=== PATIENT | female | born 1965 | race Caucasian/White ===

== ENCOUNTER 2019-04-06 07:49 | Outpatient (CLI) | payer MEDICAID ==
--- NOTE | 2019-04-06 09:01 | MRI ---
MRI Brain W WO Con: 04/06/2019 12:00 AM CLINICAL HISTORY: Headaches, dizziness, history of malignancy, breast cancer. COMPARISON: None. FINDINGS: Extra axial spaces: Normal in size and morphology for the patient's age. Acute infarction: None. Ventricular system: Normal in size and morphology for the patient's age. Basal cisterns: Normal. Cerebral parenchyma: Minimal chronic microvascular ischemic disease. Midline shift: None. Cerebellum: Normal. Brainstem: Normal. Paranasal sinuses:Clear Intraaxial Enhancement: None IMPRESSION:No acute intracranial abnormality.
--- NOTE | 2019-04-06 10:23 | CT ---
CT OF THE CHEST AND ABDOMEN AND PELVIS WITH IV CONTRAST: Date: 04/06/19 INDICATION: History of Stage III breast cancer, evaluate for metastatic disease. COMPARISON: None. FINDINGS: There is a heterogeneous and lobulated mass within the outer aspect of the left breast measuring 3.2 x 2.6 cm. There is an enlarged left axillary lymph node measuring 2.4 cm. There are additional enlarg ed lymph nodes seen within the superior axillary region measuring up to 1.0 cm on image 13 of series 2. Views are predominantly retropectoral. There is also a slightly prominent lymph node seen adjacent to the left subclavian vein measuring 6 mm on image 9 of series 2. No additional lymphadenopathy is evident. There is a 3 mm pulmonary nodule within the anterolateral right lower lobe on image 44 of se odin 3. No additional pulmonary nodule evident. There are areas of subsegmental volume loss within th e left lung. There is scattered centrilobular emphysema. Within the abdomen, no suspicious focal lesion is evident within the solid organs. The liver, spleen, pancreas, and adrenal glands are normal appearing. There is a 5 mm left renal cortical calcification . There are small subcentimeter cysts within both kidneys. No enlarged lymph nodes or free fluid evident. The partially opacified small and large bowel appear within normal limits. The uterus, visualized adnexa, bladder, rectum, and perirectal soft tissues are unremarkable appearin g. There are healed rib deformities laterally involving the 3rd through 5th ribs. There are also healed rib deformities involving the posterolateral 8th and 9th ribs. No suspicious osteolytic or osteoblastic lesion is identified. IMPRESSION: 1. Findings of left breast malignancy with regional lymph node spread of disease to the left axilla, left retropectoral space, and suspected within the left subclavicular region. No distant metastatic disease definitely demonstrated. There is a 3 mm pulmonary nodule within the anterolateral segment of the right lower lobe. This is not likely related to pulmonary metastatic disease; however, would rec ommend short-term follow-up in 6-8 weeks to document stability and size. PET CT would likely not be b eneficial as this is below PET resolution threshold. 2. Scattered emphysema. 3. Small, subcentimeter cyst within the right and left kidney. 4. Multiple healed right-sided rib deformities. POS: [facility]
[2019-04-06] MEDS ORDERED: Iopamidol 370 76% 100 ML VIAL ONE (13:34)
[2019-04-06] MEDS ORDERED: Gadobenate Dimeglumine 529 MG/1 ML (20ML VIAL) ONE (13:41)
--- NOTE | 2019-04-06 14:05 | NM ---
WHOLE BODY BONE SCAN: INDICATION: History of left breast malignancy. RADIOPHARMACEUTICAL: 30.1 mCi Technetium 99m sestamibi IV. COMPARISON: Prior CT of the chest, abdomen, and pelvis dated 04/06/2019. FINDINGS: There is mild degenerative change involving the shoulders, knees, ankles, and feet in a symmetric pat tern. No scintigraphic evidence of osseous metastatic disease is present. IMPRESSION: No definite scintigraphic evidence of osseous metastatic disease. POS: [facility]
== END 2019-04-06 07:50 | disposition home or self-care (01) ==
LOC: MRI 07:49
PROVIDERS: ATTEND Internal Medicine Hematology & Oncology
DX: C50.412 Malignant neoplasm of upper-outer quadrant of left female breast (principal); R51 Headache; R42 Dizziness and giddiness; J43.9 Emphysema, unspecified; R91.8 Other nonspecific abnormal finding of lung field; N28.1 Cyst of kidney, acquired; C79.9 Secondary malignant neoplasm of unspecified site
CPT/HCPCS: 70553; 71260; 74177; 78306; A9503; A9577; Q9967

== ENCOUNTER 2019-04-09 13:20 | Outpatient (CLI) | payer MEDICAID ==
[2019-04-09 16:12] LABS: #Eosinphils 0.1 thou/uL (0.0-0.7); #Lymphocytes 1.8 thou/uL (1.20-3.40); #Monocytes 0.5 thou/uL (0.11-0.59); #Neutrophils 3.7 thou/uL (1.40-6.50); %Basophils 0.5 % (0.0-1.0); %Eosinophils 1.8 % (0.0-10.0); %Lymphocytes 28.6 % (21.0-51.0); %Monocytes 8.8 % (0.0-10.0); %Neutrophils 60.3 % (42.0-75.0); Hemoglobin 14.4 g/dL (12.0-16.0); Mean Corpuscular HGB CONC 33.8 g/dL (32.0-36.0); Mean Corpuscular Hemoglobin 33.6 pg (27.0-31.0); Mean Corpuscular Volume 99.4 fL (78.0-98.0); Mean Platelet Volume 7.3 fL (7.4-10.4); Platelet Count 238 thou/uL (130-400); RBC Distribution Width 11.4 % (11.5-14.5); Red Blood Cell (RBC) Count 4.27 mill/uL (4.20-5.40); White Blood Cell (WBC) Count 6.1 thou/uL (4.8-10.8)
[2019-04-09 16:26] LABS: Anion Gap 13 mmol/L (10-20); BUN (Urea Nitrogen) 8 mg/dL (9.8-20.1); Calc. Creatinine Clearance 0 mL/min (70-130); Calcium 9.7 mg/dL (7.8-10.44); Carbon Dioxide 20 mmol/L (22-29); Chloride 107 mmol/L (98-107); Estimated GFR-MDRD 70; Glucose 86 mg/dL (70-105); Potassium 3.9 mmol/L (3.5-5.1); Sodium 136 mmol/L (136-145)
== END 2019-04-09 13:21 | disposition home or self-care (01) ==
LOC: LABBT 13:20
PROVIDERS: ATTEND Specialist
DX: Z01.818 Encounter for other preprocedural examination (principal); C50.912 Malignant neoplasm of unspecified site of left female breast
CPT/HCPCS: 80048; 85025; 93005; 93010

== ENCOUNTER 2019-04-10 13:58 | Day surgery (SDC) | payer MEDICAID ==
[2019-04-09 15:33] VITALS: BMI 29.8
[2019-04-10] MEDS ORDERED: Ketorolac Tromethamine 30 MG/ML VIAL ONE (16:12)
[2019-04-10] MEDS ORDERED: Levofloxacin 500 mg/D5W 100 ml Premix Bag ONE (17:17)
[2019-04-10] MEDS ORDERED: Bupivacaine/Epinephrine 0.25% 30 ML VIAL ONE (20:32)
[2019-04-10] MEDS ORDERED: Lidocaine 1% (PF) 30 ML VIAL ONE (20:32)
[2019-04-10] MEDS ORDERED: Fentanyl 100 MCG/2 ML VIAL ONE (20:47)
[2019-04-10] MEDS ORDERED: Propofol 500 MG/50 ML VIAL ONE (20:47)
--- NOTE | 2019-04-10 22:18 | RAD ---
Portable chest: HISTORY: Mediport placement COMPARISON: none FINDINGS:There is patchy infiltrate in the left lung base at the CP angle. Lungs otherwise appear clear. Mediport catheter appears in adequate position with tip overlying SVC. IMPRESSION:Patchy left basilar infiltrate. Mediport catheter appears in adequate position.
--- NOTE | 2019-04-11 02:09 | OP ---
DATE OF PROCEDURE: 04/10/2019 PREOPERATIVE DIAGNOSIS: Advanced stage left breast cancer. POSTOPERATIVE DIAGNOSIS: Advanced stage left breast cancer. PROCEDURE PERFORMED: Placement of right subclavian low-profile MediPort. ANESTHESIA: Total intravenous anesthesia with local using 0.25% Marcaine with epinephrine. INDICATIONS: The patient is a 53-year-old white female. She has an easily palpable lateral left breast malignancy. She also has a large easily palpable left axillary metastatic lymph node. Neoadjuvant chemotherapy has been recommended for her triple negative breast cancer. She is taken to the operating room at this time for MediPort placement. DESCRIPTION OF OPERATION: Informed consent was obtained. The patient was taken to the operating room where total intravenous anesthesia was obtained with the patient in supine position. Right periclavicular area was prepped with ChloraPrep and draped in sterile fashion. Local anesthetic was infiltrated and a large-gauge needle was passed under the clavicle in the subclavian vein. Guidewire was passed through the needle and fluoroscopically confirmed to enter the superior vena cava. Additional local anesthetic was infiltrated and transverse incision was created based on needle insertion site. A subcutaneous pocket was dissected inferiorly. Introducer dilator was passed over the guidewire under fluoroscopic guidance. The guidewire and dilator were removed, and the catheter was passed through the introducer. The tip of the catheter was positioned at the atriocaval junction and the catheter was trimmed to the appropriate length and secured to the locking hub of the MediPort. The port was then placed in the subcutaneous pocket where it was secured to the pectoral fascia with 2 interrupted sutures of 3-0 Prolene. The incision was then closed in layers with 3-0 and 4-0 Monocryl. Additional local anesthetic was infiltrated. The port was cannulated with a Stewart needle and it aspirated blood freely and was flushed with heparinized saline. Dermabond was placed externally on the skin incision. There were no complications. Blood loss was negligible. The patient tolerated the procedure well and was taken to recovery room in stable condition. FINDINGS: A low-profile power compatible port was selected. It was passed uneventfully into the right subclavian vein. There were no complications. Blood loss was negligible. The patient tolerated the procedure well. Fluoroscopy was used throughout the procedure. A postprocedure chest x-ray shows good placement of port and catheter. Job ID: [id number]
== END 2019-04-10 22:48 | disposition home or self-care (01) ==
LOC: SDC 13:58
PROVIDERS: ATTEND Specialist
PROC: 05H533Z Insertion of Infusion Device into Right Subclavian Vein, Percutaneous Approach (ICD-10-PCS; principal; 2019-04-10)
DX: C50.912 Malignant neoplasm of unspecified site of left female breast (principal); C77.3 Secondary and unspecified malignant neoplasm of axilla and upper limb lymph nodes; F17.290 Nicotine dependence, other tobacco product, uncomplicated; Z88.0 Allergy status to penicillin
CPT/HCPCS: 71045; C1788; J0131; J1642; J1885; J1956; J2001; J2704; J3010

== ENCOUNTER 2019-04-11 12:50 | Outpatient (CLI) | payer MEDICAID | END 2019-04-11 12:51 | disposition home or self-care (01) | LOC: ULT 12:50 | PROVIDERS: ATTEND Internal Medicine Hematology & Oncology | DX: Z51.11 Encounter for antineoplastic chemotherapy (principal); C50.919 Malignant neoplasm of unspecified site of unspecified female breast; I08.1 Rheumatic disorders of both mitral and tricuspid valves; Z79.899 Other long term (current) drug therapy | CPT/HCPCS: 36415; 80053; 82248; 83615; 84100; 84550; 93306 ==

== ENCOUNTER 2019-04-12 09:51 | Day surgery (SDC) | payer MEDICAID ==
[~2019-04-12 09:51] MED LIST: Cyclophosphamide 1 GM in Sodium Chloride 0.9% 250 ML 250 ML IVPB SCH; DOXORUBICIN IVPB SCH; Palonosetron HCl 0.25 MG in Sodium Chloride 0.9% 50 ML IVPB SCH; SODIUM CHLORIDE 0.9% IVPB SCH
[2019-04-12] MEDS ORDERED: Sodium Chloride 0.9% 20 ML ONE (10:19)
[2019-04-12 11:40] VITALS: BP 134/67; TEMP 98.3
== END 2019-04-12 16:02 | disposition home or self-care (01) ==
LOC: ONC/OP 09:51
PROVIDERS: ATTEND Internal Medicine Hematology & Oncology
DX: Z51.11 Encounter for antineoplastic chemotherapy (principal); C50.412 Malignant neoplasm of upper-outer quadrant of left female breast; Z88.0 Allergy status to penicillin
CPT/HCPCS: 96375; 96413; 96417; J1100; J1642; J2469; J7050; J9000; J9070

== ENCOUNTER 2019-04-13 13:02 | Day surgery (SDC) | payer MEDICAID ==
[~2019-04-13 13:02] MED LIST changes: -Cyclophosphamide 1 GM in Sodium Chloride 0.9% 250 ML 250 ML IVPB SCH; -DOXORUBICIN IVPB SCH; +PEGFILGRASTIM-JMDB 6 MG/0.6 ML SYRINGE SQ SCH; -Palonosetron HCl 0.25 MG in Sodium Chloride 0.9% 50 ML IVPB SCH; -SODIUM CHLORIDE 0.9% IVPB SCH
[2019-04-13 13:11] VITALS: BP 136/61; TEMP 98.3
== END 2019-04-13 13:11 | disposition home or self-care (01) ==
LOC: ONC/OP 13:02
PROVIDERS: ATTEND Internal Medicine Hematology & Oncology
DX: Z51.11 Encounter for antineoplastic chemotherapy (principal); C50.412 Malignant neoplasm of upper-outer quadrant of left female breast; Z88.0 Allergy status to penicillin
CPT/HCPCS: 96372; Q5108

== ENCOUNTER 2019-04-26 11:30 | Day surgery (SDC) | payer OTHER ==
[2019-04-26] MEDS ORDERED: Sodium Chloride 0.9% 40 ML ONE (11:41)
[2019-04-26] MEDS: Dexamethasone 10 MG/ML VIAL SLOW IVP SCH (11:48)
[2019-04-26] MEDS: PALONOSETRON HCL 0.05 MG/ML 5 ML VIAL IVP SCH (11:49)
[2019-04-26] MEDS: ADMIXTURE FEE SLOW IVP SCH (12:24)
[2019-04-26] MEDS: DOXORUBICIN SLOW IVP SCH (12:24)
[2019-04-26] MEDS: Cyclophosphamide 1 GM in Sodium Chloride 0.9% 250 ML 250 ML IVPB SCH (12:25)
== END 2019-04-26 14:09 | disposition home or self-care (01) ==
LOC: ONC/OP 11:30
PROVIDERS: ATTEND Internal Medicine Hematology & Oncology
DX: Z51.11 Encounter for antineoplastic chemotherapy (principal); C50.412 Malignant neoplasm of upper-outer quadrant of left female breast; Z88.0 Allergy status to penicillin
CPT/HCPCS: 36415; 80053; 82248; 83615; 84100; 84550; 96375; 96413; 96417; J1100; J1642; J2469; J2505; J7050; J9000; J9070

== ENCOUNTER 2019-05-10 10:57 | Day surgery (SDC) | payer OTHER ==
[~2019-05-10 10:57] MED LIST changes: +ADMIXTURE FEE SLOW IVP SCH; +Cyclophosphamide 1 GM in Sodium Chloride 0.9% 250 ML 250 ML IVPB SCH; +DOXORUBICIN SLOW IVP SCH; +Dexamethasone 10 MG/ML VIAL SLOW IVP SCH; +PALONOSETRON HCL 0.05 MG/ML 5 ML VIAL IVP SCH; -PEGFILGRASTIM-JMDB 6 MG/0.6 ML SYRINGE SQ SCH; +Sodium Chloride 0.9% 40 ML ONE
[2019-05-10 11:13] VITALS: BP 111/58; TEMP 97.8
[2019-05-10] MEDS ORDERED: Pegfilgrastim Onpro 6 MG/0.6 ML SQ SCH (11:45)
== END 2019-05-10 13:19 | disposition home or self-care (01) ==
LOC: ONC/OP 10:57
PROVIDERS: ATTEND Internal Medicine Hematology & Oncology
DX: Z51.11 Encounter for antineoplastic chemotherapy (principal); C50.412 Malignant neoplasm of upper-outer quadrant of left female breast; Z88.0 Allergy status to penicillin
CPT/HCPCS: 80053; 82248; 83615; 84100; 84550; 96375; 96377; 96401; 96413; J1100; J1642; J2469; J2505; J7050; J9000; J9070

== ENCOUNTER 2019-05-24 11:23 | Day surgery (SDC) | payer OTHER ==
[~2019-05-24 11:23] MED LIST changes: -Dexamethasone 10 MG/ML VIAL SLOW IVP SCH; -PALONOSETRON HCL 0.05 MG/ML 5 ML VIAL IVP SCH; +Palonosetron HCl 0.25 MG in Sodium Chloride 0.9% 50 ML IVPB SCH; +Pegfilgrastim Onpro 6 MG/0.6 ML SQ SCH; -Sodium Chloride 0.9% 40 ML ONE
[2019-05-24] MEDS ORDERED: Sodium Chloride 0.9% 20 ML ONE (12:43)
== END 2019-05-24 14:01 | disposition home or self-care (01) ==
LOC: ONC/OP 11:23
PROVIDERS: ATTEND Internal Medicine Hematology & Oncology
DX: Z51.11 Encounter for antineoplastic chemotherapy (principal); C50.412 Malignant neoplasm of upper-outer quadrant of left female breast; Z88.0 Allergy status to penicillin; Z17.1 Estrogen receptor negative status [ER-]
CPT/HCPCS: 36415; 80053; 82248; 83615; 84100; 84550; 96367; 96375; 96377; 96413; 96417; J1100; J1453; J1642; J2469; J2505; J3490; J7050; J9000; J9070

== ENCOUNTER 2019-06-07 10:24 | Day surgery (SDC) | payer OTHER ==
[~2019-06-07 10:24] MED LIST changes: -ADMIXTURE FEE SLOW IVP SCH; -Cyclophosphamide 1 GM in Sodium Chloride 0.9% 250 ML 250 ML IVPB SCH; +DOCEtaxel 140 MG in Sodium Chloride 0.9% 250 ML 250 ML IVPB SCH; -DOXORUBICIN SLOW IVP SCH; +Dexamethasone 10 MG in Sodium Chloride 0.9% 50 ML IVPB SCH; +PACLitaxel 140 MG in Sodium Chloride 0.9% 250 ML 250 ML IVPB SCH; -Palonosetron HCl 0.25 MG in Sodium Chloride 0.9% 50 ML IVPB SCH; -Pegfilgrastim Onpro 6 MG/0.6 ML SQ SCH
[2019-06-07] MEDS ORDERED: Sodium Chloride 0.9% 20 ML ONE (10:30)
[2019-06-07 10:40] VITALS: BP 117/55; TEMP 98.5
== END 2019-06-07 11:58 | disposition home or self-care (01) ==
LOC: ONC/OP 10:24
PROVIDERS: ATTEND Internal Medicine Hematology & Oncology
DX: Z51.11 Encounter for antineoplastic chemotherapy (principal); C50.412 Malignant neoplasm of upper-outer quadrant of left female breast; Z88.0 Allergy status to penicillin
CPT/HCPCS: 36415; 80053; 82248; 83615; 84100; 84550; 96375; 96413; J1100; J1642; J7050; J9267

== ENCOUNTER 2019-06-14 10:16 | Day surgery (SDC) | payer OTHER ==
[~2019-06-14 10:16] MED LIST changes: -DOCEtaxel 140 MG in Sodium Chloride 0.9% 250 ML 250 ML IVPB SCH; -Dexamethasone 10 MG in Sodium Chloride 0.9% 50 ML IVPB SCH
[2019-06-14 12:19] VITALS: BP 115/58; TEMP 98.5
== END 2019-06-14 13:24 | disposition home or self-care (01) ==
LOC: ONC/OP 10:16
PROVIDERS: ATTEND Internal Medicine Hematology & Oncology
DX: Z51.11 Encounter for antineoplastic chemotherapy (principal); C50.412 Malignant neoplasm of upper-outer quadrant of left female breast; Z88.0 Allergy status to penicillin
CPT/HCPCS: 96367; 96413; J1100; J7050; J9267

== ENCOUNTER 2019-06-21 10:09 | Day surgery (SDC) | payer OTHER ==
[2019-06-21] MEDS ORDERED: Sodium Chloride 0.9% 20 ML ONE (11:39)
[2019-06-21 11:46] VITALS: BP 115/59; TEMP 98.6
== END 2019-06-21 13:44 | disposition home or self-care (01) ==
LOC: ONC/OP 10:09
PROVIDERS: ATTEND Internal Medicine Hematology & Oncology
DX: Z51.11 Encounter for antineoplastic chemotherapy (principal); C50.412 Malignant neoplasm of upper-outer quadrant of left female breast; Z87.891 Personal history of nicotine dependence; Z88.0 Allergy status to penicillin
CPT/HCPCS: 96375; 96413; J1100; J1642; J7050; J9267

== ENCOUNTER 2019-06-28 10:54 | Day surgery (SDC) | payer OTHER ==
[~2019-06-28 10:54] MED LIST changes: +Dexamethasone Sod Phosphate 4 MG in Sodium Chloride 0.9% 50 ML IVPB SCH
[2019-06-28] MEDS ORDERED: Sodium Chloride 0.9% 20 ML ONE (10:57)
[2019-06-28 11:16] VITALS: BP 133/61; TEMP 98.7
== END 2019-06-28 12:42 | disposition home or self-care (01) ==
LOC: ONC/OP 10:54
PROVIDERS: ATTEND Internal Medicine Hematology & Oncology
DX: Z51.11 Encounter for antineoplastic chemotherapy (principal); C50.412 Malignant neoplasm of upper-outer quadrant of left female breast; Z88.0 Allergy status to penicillin
CPT/HCPCS: 96375; 96413; J1100; J1642; J7050; J9267

== ENCOUNTER 2019-07-05 10:03 | Day surgery (SDC) | payer OTHER ==
[~2019-07-05 10:03] MED LIST changes: +Dexamethasone 10 MG/ML VIAL SLOW IVP SCH; +Dexamethasone 4 mg/ml Vial SLOW IVP SCH; -Dexamethasone Sod Phosphate 4 MG in Sodium Chloride 0.9% 50 ML IVPB SCH
[2019-07-05] MEDS ORDERED: Sodium Chloride 0.9% 20 ML ONE (10:28)
[2019-07-05 10:51] VITALS: BP 122/66; TEMP 98.9
== END 2019-07-05 12:12 | disposition home or self-care (01) ==
LOC: ONC/OP 10:03
PROVIDERS: ATTEND Internal Medicine Hematology & Oncology
DX: Z51.11 Encounter for antineoplastic chemotherapy (principal); C50.412 Malignant neoplasm of upper-outer quadrant of left female breast; Z17.1 Estrogen receptor negative status [ER-]; Z88.0 Allergy status to penicillin
CPT/HCPCS: 36415; 80053; 82248; 83615; 84100; 84550; 96375; 96413; J1100; J1642; J7050; J9267

== ENCOUNTER 2019-07-12 11:04 | Day surgery (SDC) | payer OTHER ==
[~2019-07-12 11:04] MED LIST changes: -Dexamethasone 10 MG/ML VIAL SLOW IVP SCH
[2019-07-12] MEDS: Sodium Chloride 0.9% 20 ML ONE ×2 (12:24→13:26)
[2019-07-12 13:03] VITALS: BP 121/62; TEMP 98.9
== END 2019-07-12 15:51 | disposition home or self-care (01) ==
LOC: ONC/OP 11:04
PROVIDERS: ATTEND Internal Medicine Hematology & Oncology
DX: Z51.11 Encounter for antineoplastic chemotherapy (principal); C50.412 Malignant neoplasm of upper-outer quadrant of left female breast; Z17.1 Estrogen receptor negative status [ER-]; Z88.0 Allergy status to penicillin
CPT/HCPCS: 96375; 96413; J1100; J1642; J7050; J9267

== ENCOUNTER 2019-07-19 10:32 | Day surgery (SDC) | payer OTHER ==
[~2019-07-19 10:32] MED LIST changes: +Dexamethasone Sod Phosphate 4 MG in Sodium Chloride 0.9% 50 ML IVPB SCH
[2019-07-19] MEDS ORDERED: Sodium Chloride 0.9% 30 ML ONE (10:40)
== END 2019-07-19 12:20 | disposition home or self-care (01) ==
LOC: ONC/OP 10:32
PROVIDERS: ATTEND Internal Medicine Hematology & Oncology
DX: Z51.11 Encounter for antineoplastic chemotherapy (principal); C50.412 Malignant neoplasm of upper-outer quadrant of left female breast; Z88.0 Allergy status to penicillin
CPT/HCPCS: 96375; 96413; J1100; J1642; J7050; J9267

== ENCOUNTER 2019-07-26 10:37 | Day surgery (SDC) | payer OTHER ==
[~2019-07-26 10:37] MED LIST changes: -Dexamethasone Sod Phosphate 4 MG in Sodium Chloride 0.9% 50 ML IVPB SCH; +Sodium Chloride 0.9% 20 ML ONE
[2019-07-26 10:53] VITALS: BP 132/68; TEMP 98.7
[2019-07-26] MEDS ORDERED: Sodium Chloride 0.9% 20 ML ONE (10:53)
== END 2019-07-26 12:59 | disposition home or self-care (01) ==
LOC: ONC/OP 10:37
PROVIDERS: ATTEND Internal Medicine Hematology & Oncology
DX: Z51.11 Encounter for antineoplastic chemotherapy (principal); C50.412 Malignant neoplasm of upper-outer quadrant of left female breast; Z88.0 Allergy status to penicillin
CPT/HCPCS: 96375; 96413; J1100; J1642; J7050; J9267

== ENCOUNTER 2019-08-02 10:29 | Day surgery (SDC) | payer OTHER ==
[~2019-08-02 10:29] MED LIST changes: -Sodium Chloride 0.9% 20 ML ONE
[2019-08-02] MEDS ORDERED: Sodium Chloride 0.9% 20 ML ONE (10:30)
[2019-08-02 10:51] VITALS: BP 130/64; TEMP 97.5
== END 2019-08-02 12:17 | disposition home or self-care (01) ==
LOC: ONC/OP 10:29
PROVIDERS: ATTEND Internal Medicine Hematology & Oncology
DX: Z51.11 Encounter for antineoplastic chemotherapy (principal); C50.412 Malignant neoplasm of upper-outer quadrant of left female breast; Z88.0 Allergy status to penicillin; Z17.1 Estrogen receptor negative status [ER-]
CPT/HCPCS: 36415; 80053; 82248; 83615; 84100; 84550; 96375; 96413; J1100; J1642; J7050; J9267

== ENCOUNTER 2019-08-09 09:25 | Day surgery (SDC) | payer OTHER ==
[2019-08-09] MEDS ORDERED: Sodium Chloride 0.9% 20 ML ONE (09:43)
[2019-08-09 10:15] VITALS: BP 131/63; TEMP 98
== END 2019-08-09 12:19 | disposition home or self-care (01) ==
LOC: ONC/OP 09:25
PROVIDERS: ATTEND Internal Medicine Hematology & Oncology
DX: Z51.11 Encounter for antineoplastic chemotherapy (principal); C50.412 Malignant neoplasm of upper-outer quadrant of left female breast; Z88.0 Allergy status to penicillin
CPT/HCPCS: 96375; 96413; J1100; J1642; J7050; J9267

== ENCOUNTER 2019-08-15 11:00 | Day surgery (SDC) | payer OTHER ==
[2019-08-15] MEDS ORDERED: Sodium Chloride 0.9% 20 ML ONE (11:07)
[2019-08-15 11:59] VITALS: BP 131/64; TEMP 98.2
== END 2019-08-15 16:47 | disposition home or self-care (01) ==
LOC: ONC/OP 11:00
PROVIDERS: ATTEND Internal Medicine Hematology & Oncology
DX: Z51.11 Encounter for antineoplastic chemotherapy (principal); C50.412 Malignant neoplasm of upper-outer quadrant of left female breast; Z88.0 Allergy status to penicillin
CPT/HCPCS: 96375; 96413; J1100; J1642; J7050; J9267

== ENCOUNTER 2019-08-23 14:48 | Day surgery (SDC) | payer OTHER ==
[2019-08-23] MEDS ORDERED: Sodium Chloride 0.9% 20 ML ONE (15:02)
[2019-08-23 16:15] VITALS: BP 117/67; TEMP 98.3
== END 2019-08-23 17:12 | disposition home or self-care (01) ==
LOC: ONC/OP 14:48
PROVIDERS: ATTEND Internal Medicine Hematology & Oncology
DX: Z51.11 Encounter for antineoplastic chemotherapy (principal); C50.412 Malignant neoplasm of upper-outer quadrant of left female breast; Z88.0 Allergy status to penicillin
CPT/HCPCS: 96375; 96413; J1100; J1642; J7050; J9267

== ENCOUNTER 2019-09-21 07:22 | Outpatient (CLI) | payer OTHER ==
[2019-09-21 13:07] LABS: #Eosinphils 0.1 thou/uL (0.0-0.7); #Lymphocytes 1.1 thou/uL (1.20-3.40); #Monocytes 0.3 thou/uL (0.11-0.59); #Neutrophils 2.2 thou/uL (1.40-6.50); %Basophils 0.5 % (0.0-1.0); %Eosinophils 3.3 % (0.0-10.0); %Monocytes 6.8 % (0.0-10.0); %Neutrophils 59.3 % (42.0-75.0); Hemoglobin 13.1 g/dL (12.0-16.0); Mean Corpuscular HGB CONC 34.9 g/dL (32.0-36.0); Mean Corpuscular Hemoglobin 36.7 pg (27.0-31.0); Mean Platelet Volume 7.8 fL (7.4-10.4); Platelet Count 215 thou/uL (130-400); RBC Distribution Width 11.8 % (11.5-14.5); Red Blood Cell (RBC) Count 3.58 mill/uL (4.20-5.40); White Blood Cell (WBC) Count 3.6 thou/uL (4.8-10.8)
[2019-09-21 13:18] LABS: Anion Gap 13 mmol/L (10-20); BUN (Urea Nitrogen) 13 mg/dL (9.8-20.1); Calc. Creatinine Clearance 0 mL/min (70-130); Calcium 9.7 mg/dL (7.8-10.44); Carbon Dioxide 23 mmol/L (22-29); Chloride 108 mmol/L (98-107); Estimated GFR-MDRD 68; Glucose 91 mg/dL (70-105); Potassium 4.9 mmol/L (3.5-5.1); Sodium 139 mmol/L (136-145)
--- NOTE | 2019-09-21 16:45 | EKG ---
Test Reason : Blood Pressure : / mmHG Vent. Rate : 084 BPM Atrial Rate : 084 BPM P-R Int : 146 ms QRS Dur : 082 ms QT Int : 362 ms P-R-T Axes : 063 051 029 degrees QTc Int : 427 ms Normal sinus rhythm Normal ECG When compared with ECG of 09-APR-2019 15:52, No significant change was found Confirmed by DR. Ted SIMMS ([id number]) on 09/21/2019 4:44:39 PM Referred By: AJ Confirmed By:DR. Ted SIMMS
== END 2019-09-21 07:23 | disposition home or self-care (01) ==
LOC: LABBT 07:22
PROVIDERS: ATTEND Specialist
DX: Z01.818 Encounter for other preprocedural examination (principal); C77.3 Secondary and unspecified malignant neoplasm of axilla and upper limb lymph nodes; C50.912 Malignant neoplasm of unspecified site of left female breast
CPT/HCPCS: 80048; 85025; 93005; 93010

== ENCOUNTER 2019-09-27 06:57 | Day surgery (SDC) | payer OTHER ==
[2019-09-21 12:26] VITALS: BMI 27.8
--- NOTE | 2019-09-27 08:52 | MMO ---
Needle localization left breast cancer mammographic guided HISTORY: Left breast cancer. FINDINGS: After explaining the procedure and answering all questions, the localization clip associate d with the left breast mass was visualized. The mass is much smaller than on prior diagnostic breast imaging from February 2019. Sterile technique, buffered local anesthesia, mammographic guidance, and a lateral approach were used to carefully advance a 5 cm [place] needle and wire through the area of mass, immediately posterior to the localization clip. The clip lies 1.8 cm from the needle tip. Images were obtained. Patient tolerated the procedure well and was transferred to nuclear medicine [facility] in good condition. IMPRESSION: Technically successful mammographic guided needle localization left breast cancer.
--- NOTE | 2019-09-27 08:56 | NM ---
LEFTBREAST LYMPHOSCINTIGRAPHY: INDICATION: Left breast malignancy Radial pharmaceutical: 0.394 mCi of technetium 99m filtered sulfur colloid TECHNIQUE: The leftnipple areolar complex was cleansed with alcohol. The radiotracer was injected wit hin the subcutaneous tissues surrounding the nipple areolar complex in 4 separate aliquots. The patient tolerated the injection without difficulty. FINDINGS: There is radiotracer seen surrounding the leftnipple areolar complex. There is radiotracer accumulation within the first draining lymph node of the anterior leftaxilla. This was marked on patient's skin. IMPRESSION: Successful leftbreast lymphoscintigraphy.
[2019-09-27] MEDS ORDERED: Ketorolac Tromethamine 30 MG/ML VIAL ONE (09:06)
[2019-09-27] MEDS ORDERED: ePHEDrine/0.9% NaCl/PF SYRINGE 50 mg/10 ml ONE (09:54)
[2019-09-27] MEDS ORDERED: Dexamethasone 20 MG/5 ML VIAL ONE (09:54)
[2019-09-27] MEDS ORDERED: Ondansetron PF 4 MG/2 ML Vial ONE (09:54)
[2019-09-27] MEDS ORDERED: PHENYLEPHRINE-NS 100 MCG/ML 10 ML SYRINGE ONE (09:54)
[2019-09-27] MEDS ORDERED: PROPOFOL 200 MG/20 ML VIAL ONE (09:54)
[2019-09-27] MEDS ORDERED: Fentanyl 100 MCG/2 ML VIAL ONE (10:46)
[2019-09-27] MEDS ORDERED: Midazolam HCl 2 mg/2 ml Vial ONE (10:46)
[2019-09-27] MEDS ORDERED: SUGAMMADEX SODIUM 200 MG/2 ML VIAL ONE (10:47)
[2019-09-27] MEDS ORDERED: Levofloxacin 500 mg/D5W 100 ml Premix Bag ONE (11:21)
[2019-09-27] MEDS ORDERED: Lidocaine 1% w/Epinephrine 1:100K 20 ML VIAL ONE (11:31)
[2019-09-27] MEDS ORDERED: Bupivacaine 0.25% HCL 30 ML VIAL ONE (11:31)
[2019-09-27] MEDS ORDERED: Isosulfan Blue 50 MG/5 ML VIAL ONE (11:37)
[2019-09-27] MEDS ORDERED: HYDROmorphone 0.5 MG/0.5 ML SYRINGE ONE (13:15)
--- NOTE | 2019-09-27 13:59 | MMO ---
Surgical specimen mammography HISTORY: Breast cancer. FINDINGS: Mammographic evaluation of the surgical specimen obtained by Dr. Lewis shows the localiza tion wire, hyperdense mass, and localization clip. Findings were called to the OR at the time of the exam.
--- NOTE | 2019-09-28 04:56 | OP ---
DATE OF PROCEDURE: 09/27/2019 PREOPERATIVE DIAGNOSIS: Left breast cancer, metastatic to lymph node. POSTOPERATIVE DIAGNOSIS: Left breast cancer, metastatic to lymph node. PROCEDURES PERFORMED: Left breast needle-localized lumpectomy, sentinel lymph node biopsy. ANESTHESIA: General endotracheal. INDICATIONS: The patient is a 54-year-old white female. She had presented with an easily palpable lateral left breast cancer. At the time of presentation, she had a 4 cm left axillary lymph node as well. She underwent neoadjuvant chemotherapy with all evidence of palpable or sonographic disease within the breast and axilla having resolved. She was taken to the operating room at this time for needle-localized lumpectomy and sentinel lymph node biopsy. Mammographic needle localization is performed as there is no longer a sonographic lesion that is visible. DESCRIPTION OF PROCEDURE: Informed consent was obtained. The patient initially had mammographic needle localization performed with excellent localization of the marking clip. She also underwent lymphoscintigraphy with identification of several left axillary lymph nodes. She was taken to the operating room where general endotracheal anesthesia was obtained with the patient in supine position. Left breast and axilla were prepped with ChloraPrep and draped in sterile fashion; 3 mL of isosulfan blue was infiltrated into the periareolar subdermal tissue and massaged for 5 minutes. A transverse left axillary incision was created and dissection was carried through the skin and subcutaneous tissue. Dissection was carried into the axilla and the superficial axillary fascia was incised. Neoprobe was utilized to identify areas of maximum radio-intensity. I was able to identify four separate sentinel lymph nodes, two of which also had blue staining. These were each dissected circumferentially and investing lymphatics were divided between clamps and 3-0 silk ties. Meticulous hemostasis was obtained. Additional local anesthetic was infiltrated using a mixture of lidocaine with epinephrine and Marcaine. The wound was closed in layers with 3-0 and 4-0 Monocryl. Attention was turned to the breast. Additional local anesthetic was infiltrated and a transverse 5 cm incision was created extending medially from the localizing needle. Dissection was carried through skin and subcutaneous tissue. Flaps were raised within the breast. The breast tissue into which the localizing needle entered was grasped with Allis clamps and widely excised to obtain a wide-margin lumpectomy around the localizing needle. Specimen was removed from within the breast. It was tagged with sutures for orientation and submitted for specimen mammography. This revealed that the density as well as the clip were removed with the specimen. Meticulous hemostasis was obtained within the wound. It was closed in layers with 3-0 and 4-0 Monocryl. Dermabond was placed externally over both incision sites. There were no complications. Blood loss was negligible. The patient tolerated the procedure well and was taken to recovery room in stable condition. Job ID: [id number]
== END 2019-09-27 15:35 | disposition home or self-care (01) ==
LOC: SDC 06:57
PROVIDERS: ATTEND Specialist
PROC: 0HBU0ZZ Excision of Left Breast, Open Approach (ICD-10-PCS; principal; 2019-09-27)
PROC: 07B60ZX Excision of Left Axillary Lymphatic, Open Approach, Diagnostic (ICD-10-PCS; principal; 2019-09-27)
DX: C50.812 Malignant neoplasm of overlapping sites of left female breast (principal); F17.290 Nicotine dependence, other tobacco product, uncomplicated; Z88.0 Allergy status to penicillin
CPT/HCPCS: 19281; 76098; 78195; 88307; 88331; 88334; 88342; A9541; J0690; J1100; J1170; J1885; J1956; J2250; J2405; J2704; J3010; Q9968; S0020

== ENCOUNTER 2020-01-09 09:36 | Outpatient (CLI) | payer OTHER ==
--- NOTE | 2020-01-09 11:58 | ULT ---
PELVIC ULTRASOUND INCLUDING TRANSABDOMINAL AND TRANSVAGINAL AND VASCULAR DUPLEX WITH COLOR AND SPECTR AL DOPPLER IMAGING: Date: 01/09/2020 HISTORY: Follow-up pelvic ultrasound with endometrial thickening on prior exam. COMPARISON: 02/07/2019. FINDINGS: The uterus measures 6.2 x 3.4 x 3.7 cm. Endometrial thickness is somewhat poorly defined but approxim ates 1.1 cm on transabdominal and transvaginal imaging. Right ovary measures 2.0 x 1.4 x 1.6 cm. Left ovary measures 2.0 x 1.2 x 2.0 cm. No evidence for solid or cystic mass or abnormal fluid collection. No evidence of abscess. IMPRESSION: Somewhat poorly defined, but overall thickened endometrium at 1.1 cm. No other significant acute proc ess. POS: [facility]
== END 2020-01-09 09:37 | disposition home or self-care (01) ==
LOC: BICULT 09:36
PROVIDERS: ATTEND Family Medicine
DX: R93.89 Abnormal findings on diagnostic imaging of other specified body structures (principal)
CPT/HCPCS: 76856